=== PATIENT | female | born 1985 | race Caucasian/White ===

== ENCOUNTER 2017-12-08 07:47 | Emergency (ER) | payer MEDICAID, SELFPAY ==
[2017-12-08 07:49] VITALS: BP 124/75; PULSE 75; RESP 16; TEMP 36.6; O2SAT 98; BMI 29.9
--- NOTE | 2017-12-08 07:58 | ED.VISSUMM ---
- ER Visit Summary Date of Service: 12/08/17 Chief Complaint: Dental pain and left sided facial swelling History of Present Illness: The patient is a 32 F who presents because of severe pain that awoke her from sleep. She states she had minimal pain that started yesterday. She denies fever, chills night sweats. She states she is able to open her mouth and close her mouth completely. She denies change in voice. She denies a traumatic fever, murmur, SBE, IV drug use to be an immune suppressed. She denies any antibiotic allergies. She states she has to make an appointment at the [facility] for dental care. Physical Examination: Patient has swelling left side of the face. There is no erythema. There is no warmth or indurations. There is no fluctuance. There is no trismus. Pupils equal round reactive. Extra muscles are intact. Patient has a significant defect left upper second cuspid and left upper first molar. There is no fluctuance. Trach is midline. There is no stridor. Insert cardiopulmonary exam Test Results: None Emergency Department Course and Treatment: Patient drove to the ER she was treated with Naprosyn 500 mg and clindamycin 300 mg. Treatment Plan: Contact [facility] for dental care and prescription for Kenyon, Naprosyn and clindamycin Disposition: Discharged to home with dental follow-up Impression: 1. Dental pain secondary to carry left upper second bicuspid and first molar with exposure of pulp 2. Periodontal abscess This note was generated with [employer] dictation software. It may contain incorrect words, spelling, and punctuation that were not noted in review of the chart prior to signing ED Disposition - Plan for ED Patient: Disposition: Home or Assisted Living Chief Complaint: Dental Instructions: Dental Abscess, ED Cavity Dental Prescriptions: Hydrocodone Bitart/Apap 5-325 [Kenyon 5MG-325MG] 1 tablet PO Q6H PRN PRN 3 Days #10 tablet PRN Reason: Pain Naproxen [Naprosyn] 500 mg PO BID #14 tab Clindamycin HCl 300 mg PO 4X/DAY #30 cap Referrals: Care Physician,No Primary [Primary Care Provider] - Radha Baird [NON-STAFF] - 3-5 Days Additional Instructions: Your prescription was electronically sent to [facility] pharmacy located on [facility]
--- NOTE | 2017-12-08 08:07 | ED.DCSUM_ITS ---
- ER Visit Summary Date of Service: 12/08/17 Chief Complaint: Dental pain and left sided facial swelling History of Present Illness: The patient is a 32 F who presents because of severe pain that awoke her from sleep. She states she had minimal pain that started yesterday. She denies fever, chills night sweats. She states she is able to open her mouth and close her mouth completely. She denies change in voice. She denies a traumatic fever, murmur, SBE, IV drug use to be an immune suppressed. She denies any antibiotic allergies. She states she has to make an appointment at the [facility] for dental care. Physical Examination: Patient has swelling left side of the face. There is no erythema. There is no warmth or indurations. There is no fluctuance. There is no trismus. Pupils equal round reactive. Extra muscles are intact. Patient has a significant defect left upper second cuspid and left upper first molar. There is no fluctuance. Trach is midline. There is no stridor. Insert cardiopulmonary exam Test Results: None Emergency Department Course and Treatment: Patient drove to the ER she was treated with Naprosyn 500 mg and clindamycin 300 mg. Treatment Plan: Contact [facility] for dental care and prescription for Carney, Naprosyn and clindamycin Disposition: Discharged to home with dental follow-up Impression: 1. Dental pain secondary to carry left upper second bicuspid and first molar with exposure of pulp 2. Periodontal abscess This note was generated with [employer] dictation software. It may contain incorrect words, spelling, and punctuation that were not noted in review of the chart prior to signing ED Disposition - Plan for ED Patient: Disposition: Home or Assisted Living Chief Complaint: Dental Instructions: Dental Abscess, ED Cavity Dental Prescriptions: Hydrocodone Bitart/Apap 5-325 [Carney 5MG-325MG] 1 tablet PO Q6H PRN PRN 3 Days # 10 tablet PRN Reason: Pain Naproxen [Naprosyn] 500 mg PO BID #14 tab Clindamycin HCl 300 mg PO 4X/DAY #30 cap Referrals: Care Physician,No Primary [Primary Care Provider] - Radha Baird [NON-STAFF] - 3-5 Days Additional Instructions: Your prescription was electronically sent to [facility] pharmacy located on [facility]
[2017-12-08] MEDS: Naproxen 250 MG Tablet 500 MG PO (08:15)
[2017-12-08] MEDS: Clindamycin HCl 150 MG Capsule 300 MG PO (08:16)
[2017-12-08 08:18] VITALS: BP 129/78; PULSE 82; RESP 16; O2SAT 98
== END 2017-12-08 08:19 | disposition home or self-care (01) ==
PROVIDERS: Emergency Provider Emergency Medicine
DX: K02.9 Dental caries, unspecified (principal); K08.89 Other specified disorders of teeth and supporting structures; K04.7 Periapical abscess without sinus; E66.9 Obesity, unspecified; Z72.0 Tobacco use
CPT/HCPCS: 99283

== ENCOUNTER 2018-03-28 10:10 | Day surgery (SDC) | payer MEDICAID, SELFPAY ==
--- NOTE | 2018-03-28 | FALS_PTH ---
PATIENT: JEFE ALVAREZ LOC: [facility] U#:[id number] AGE/SX: 33/F ROOM: RE03/28/[address]: Dr. Leidy Gillis, MDDOB: 1985 BED: DIS: 03/28/2018 SPEC #: [id number] RECD: 03/29/18 13:15 STATUS: VALERY REApollo #: [id number] PAMELA: 03/28/18 00:[address]: Leidy Gillis DEPT: SURGICAL PATHOLOGY RECD BY: Sarbjit Garcia ENTERED: 03/29/18 13:16 SP TYPE: FALL TUBES OTHR DR: No Primary Care Phys Tissues: Fallopian tube Procedures: Surgery Specimen Level II HEADER OPERATION: Laparoscopic salpingectomy PRE-OP DIAGNOSIS: Sterilization request TISSUE SUBMITTED: Bilateral fallopian tubes MICROSCOPIC DIAGNOSIS Bilateral fallopian tubes: Bilateral fallopian tubes including fimbrial ends, no pathologic diagnosis. SJ:taniya 04/02/18 MICROSCOPIC DESCRIPTION Slides are reviewed. GROSS DESCRIPTION Received is one container labeled with the patient's name and designated bilateral fallopian tubes. The specimen consists of bilateral fallopian tubes including fimbrial ends. The fallopian tubes are not identified as right or left. One of the fallopian tubes measure 4.5 cm in length and 0.6 cm in diameter and the second fallopian tube measures 5.5 cm in length and 0.6 cm in diameter. Sections reveal unremarkable cut surfaces. Mechanics Supervisor sections are submitted in two cassettes with each cassette containing one fallopian tube. / TERRIE:taniya 03/29/18 TC:4 CPT: 79082 x2
[2018-03-28 10:30] LABS: Internal QC Validated? YES +Cl - CLEAR BKGD; Pregnancy, Urine Negative Negative
[2018-03-28 10:40] LABS: Hematocrit 42.7 % (37-47); Hemoglobin 14.9 g/dl (12.0-15.0); Mean Corp Hgb Conc 34.9 g/gl (32-36); Mean Corpuscular Hgb 29.4 pg (27.0-32.0); Mean Corpuscular Volume 84.2 fL (81-99); Mean Platelet Vol. 9.2 fl (6.2-12.0); Platelet Count 268 K/mm3 (150-450); RBC Distribution Width CV 12.4 % (11.6-14.6); RBC Distribution Width SD 37.4 fl (35.1-43.9); Red Blood Count 5.07 M/mm3 (4.2-5.4); White Blood Count 8.7 K/mm3 (4.4-11.0)
[2018-03-28 10:41] LABS: Scan Indicated on CBC? Y/N NO
[2018-03-28 10:43] VITALS: BP 107/65; PULSE 82; RESP 16; TEMP 36.8; O2SAT 98; BMI 29.5
--- NOTE | 2018-03-28 12:24 | PCM.DC.TUB ---
Discharge Diet: No Restrictions, - - Increase fluid intake for 48 hours. Discharge Activity: Return to Normal Activity, May Drive - when you are no longer taking narcotic pain medications., May Shower, May Take a Tub Bath - in 7 days., - - Ambulate often the next week after surgery. Lifting Restrictions: 20 Additional Activity Instructions:: Nothing in the vagina for the next 14 days. Call your doctor if your incision/area has: Continuous Slow Oozing, Sudden Increased Bleeding, Increased Pain/ Swelling, Increased Redness, Foul Smelling Discharge, Swelling at the incision site Call your doctor if you observe: Fever of 101 or Higher Cleanse incision/area with: - - you have skin glue over incision sites- may let soap and water run over them and dab dry. Do not pick off glue Allergies/Adverse Reactions: Allergies No Known Allergies Allergy (Verified 12/08/17 07:48) Medications to take at Discharge Albuterol Inhaler [Ventolin Hfa] 1 puff PO PRN PRN 12/08/17 Ibuprofen 600 mg PO 4X/DAY PRN PRN #30 tab 03/28/18 The following prescriptions were given: Ibuprofen 600 mg PO 4X/DAY PRN PRN #30 tab PRN Reason: Pain Primary Care Physician: Care Physician,No Primary [Primary Care Provider] - Please Follow Up With: Leidy Gillis MD When: as scheduled
[2018-03-28] MEDS: Ondansetron 4 MG/2 ML Vial (12:42)
[2018-03-28] MEDS: Bupivacaine Mpf 0.5% 30 ML VIAL (12:43)
--- NOTE | 2018-03-28 13:10 | OP.PCM_ITS ---
Operative Report Date of Procedure: 03/28/18 Surgeon: Dr. Leidy Gillis Indian Nanny: none Preoperative diagnosis: Sterilization request Procedure performed: Laparoscopic bilateral salpingectomy Postoperative diagnosis: sterilization request complications: None Estimated blood loss: 5 cc Drains: none Specimens collected: Bilateral tubes Findings: Normal tubes and ovaries bilaterally uterus sounded to approximately 8 cm. IV fluids: 800cc Anesthesia: General Operative note: After informed consent was obtained patient was taken to the operating room she was placed in supine position she was given anesthesia. She was then placed in the [facility] stirrups and she was prepped and draped in normal sterile fashion. Bladder was drained prior to the start of procedure approximately 5 cc of clear yellow urine was expelled. At this time attention was turned to the vaginal portion where weighted speculum placed at posterior fornix vagina single-tooth tenaculum was used to gently grasp the internal the cervix. uterus was gently sounded to approximately 8cm. Uterine manipulator was placed without difficulty. Legs then placed in parallel with the abdomen the tenaculum and the weighted speculum were removed. 2 towel clamps were placed superior to umbilicus. After Marcaine was injected superior to umbilicus a small incision was made and a 5 mm trocar was placed under direct visualization. CO2 gas was used to insufflate the intra-abdominal cavity. Upon inspection no gross abnormalities uterus tubes and ovaries appeared to be normal. At this time then the LLQ port was placed again Marcaine was injected small incision was made a knife and the 5 mm trocar was placed. Alligator clamp was then placed suprapubically. At this time then tubes were traced back to the fimbriated ends. Ligasure was used to coagulate and ligate along mesosalpinx bilaterally until tubes removed completely. Good hemostasis was appreciated. At this time procedure was deemed complete successful. The gas was desufflated on from the intra-abdominal cavity. The trocars were removed. Skin was closed using 4-0 Monocryl in a subcutaneous fashion. Dermabond glue was placed. Instrument lap and needle counts were correct ?2. The uterine manipulator was removed. Vaginal sweep was performed it was negative. There were no complications anticipated normal postoperative course for this patient.
[2018-03-28 13:20] VITALS: BP 107/65; BP 114/75; PULSE 75; RESP 16; TEMP 36.6; O2SAT 92
[2018-03-28 13:30] VITALS: BP 107/65; BP 111/53; PULSE 64; PULSE 71; RESP 16; O2SAT 93; O2SAT 94
[2018-03-28 13:45] VITALS: BP 101/70; BP 107/65; PULSE 67; RESP 16; O2SAT 97
[2018-03-28 13:58] VITALS: BP 107/65; BP 109/64; PULSE 67; RESP 16; TEMP 36.6; O2SAT 95
[2018-03-28 14:58] VITALS: BP 107/65
== END 2018-03-28 15:00 | disposition home or self-care (01) ==
LOC: SDC 10:11 → AC 10:12
PROVIDERS: Visit Provider Obstetrics & Gynecology
PROC: (CPT 58661; principal; 2018-03-28 11:50)
DX: Z30.2 Encounter for sterilization (principal); J45.909 Unspecified asthma, uncomplicated; F17.210 Nicotine dependence, cigarettes, uncomplicated
CPT/HCPCS: 58661; 36415; 81025; 85027; 88302; J7120; J2405

== ENCOUNTER 2019-04-17 07:42 | Emergency (ER) | payer SELFPAY ==
[2019-04-17 07:42] VITALS: BMI 29.9
[2019-04-17 07:43] VITALS: BP 111/87; PULSE 74; RESP 14; TEMP 36.5; O2SAT 97; BMI 27.4
--- NOTE | 2019-04-17 08:08 | ED.VISSUMM ---
- ER Visit Summary Date of Service: 04/17/19 Chief Complaint: Headache History of Present Illness: The patient is a 34 F who presents with dizziness and a headache that began yesterday. Patient describes her dizziness is a spinning sensation as well as feeling off balance. Patient states she felt like she was walking sideways yesterday. Patient states her headache is over the frontal area. Patient denies any nausea or vomiting. Patient states she has had a couple episodes of intermittent blurred vision with this. Patient denies any photophobia or scotoma. Patient denies any hearing changes but admits to some mild right ear pain. Patient admits to some nasal congestion and rhinorrhea over the last couple days as well. Patient states her dizziness is worse with movement of her head. Patient states she went to an urgent care and was told that they would not be able to see her there. Patient was told to see her primary care physician or go to the emergency department. Patient states she was unable to be seen by her primary care physician today she presented to the emergency department. Physical Examination: Vital signs are stable. Patient is afebrile. Patient is in no acute distress. Pupils are equal, round, and reactive to light bilaterally. Extraocular muscles are intact. There is mild nystagmus with right lateral gaze. Tympanic membranes are clear bilaterally. Oral mucosa is pink and moist. Oropharynx is clear. Neck is supple. Trachea is midline. There is no JVD noted. Heart was regular rate and rhythm. Lungs are clear and equal bilaterally. Cranial nerves II through XII are intact. There are no focal motor or sensory deficits noted. Test Results: CBC and basic metabolic profile were obtained and were normal. Serum hCG was obtained. Emergency Department Course and Treatment: Patient was given IV fluids, meclizine, and Toradol. Patient was feeling better on reevaluation. Patient states her dizziness has resolved. Patient states her headache improved. Patient was given a prescription for meclizine. Patient was instructed to follow-up with her primary care physician in 5 to 7 days. Patient was instructed to drink plenty of fluids. Patient understood and was agreeable with the plan. All questions were answered. Disposition: Discharge Home Impression: 1. Vertigo 2. Upper respiratory infection This note was generated with [employer] dictation software. It may contain incorrect words, spelling, and punctuation that were not noted in review of the chart prior to signing ED Disposition - Plan for ED Patient: Disposition: Home or Assisted Living Diagnosis: Vertigo, Viral upper respiratory infection Instructions: ED Vertigo Unspecified Prescriptions: Meclizine HCl 25 mg PO Q8H PRN PRN #20 tab PRN Reason: Dizziness Referrals: Care Physician,No Primary [Primary Care Provider] - 5-7 Days Additional Instructions: Drink plenty of fluids. Follow-up with your primary care physician in 5 to 7 days.
[2019-04-17] MEDS: 0.9% Normal Saline 1,000 ML 1000 ML IV (08:49)
[2019-04-17] MEDS: Meclizine HCl 25 MG Tablet PO (08:49)
[2019-04-17] MEDS: Ketorolac 30 MG/ML Syringe IV (08:50)
[2019-04-17 08:51] LABS: Absolute Lymphocyte Count 2.87 X10^3/ul (0.83-4.51); Absolute Neutrophil Count 3.3 X10^3/uL (2.0-7.7); Basophil# 0.02 X10^3/uL; Basophil% 0.3 % (0-1); Eosinophil# 0.57 X10^3/uL; Eosinophils% 8.1 % (0-5); Hematocrit 48.5 % (37-47); Lymphocyte # 2.87 X10^3/ul (4.0); Lymphocyte % 40.6 % (19-41); Mean Corp Hgb Conc 35.1 g/gl (32-36); Mean Corpuscular Hgb 29.7 pg (27.0-32.0); Mean Corpuscular Volume 84.8 fL (81-99); Monocyte# 0.31 X10^3/uL; Monocyte% 4.4 % (0-10); Neutrophil # 3.29 X10^3/uL (2.7-7.7); Neutrophil % 46.5 % (47-70); POSITIVE COUNT NO; POSITIVE DIFFERENTIAL NO; POSITIVE MORPHOLOGY NO; Platelet Count 237 K/mm3 (150-450); RBC Distribution Width SD 36.9 fl (35.1-43.9); Red Blood Count 5.72 M/mm3 (4.2-5.4); White Blood Count 7.1 K/mm3 (4.4-11.0)
[2019-04-17 09:03] LABS: Anion Gap 1 (5-15); BUN 10 mg/dL (7-18); BUN/Creat Ratio 12.3 RATIO (10-20); Calcium,Total 9.2 mg/dL (8.5-10.1); Chloride 110 mmol/L (98-107); Creatinine, Serum 0.81 mg/dL (0.55-1.02); EST Glomerular Filtration Rate 87 mL/min (>60); Est Glom Filt Rate - Afr Amer 105 mL/min (>60); Glucose 76 mg/dL (74-106); Potassium 4.2 mmol/L (3.5-5.1); Sodium Level 137 mmol/L (136-145)
[2019-04-17 09:30] LABS: Internal QC Validated? YES +Cl - CLEAR BKGD; Pregnancy, Serum, hCG Quali. NEGATIVE Negative
[2019-04-17 10:10] VITALS: BP 132/77; PULSE 62; RESP 17; O2SAT 98
== END 2019-04-17 10:11 | disposition home or self-care (01) ==
PROVIDERS: Emergency Provider Emergency Medicine
DX: J06.9 Acute upper respiratory infection, unspecified (principal); R42 Dizziness and giddiness; F17.200 Nicotine dependence, unspecified, uncomplicated
CPT/HCPCS: 80048; 84703; 85025; 96361; 96374; 99284; J7030; A4216

== ENCOUNTER 2020-01-21 21:18 | Emergency (ER) | payer SELFPAY ==
[2020-01-21 21:19] VITALS: BP 131/72; PULSE 71; RESP 16; TEMP 36.6; O2SAT 98; BMI 27.4
--- NOTE | 2020-01-21 21:50 | ED.DCSUM_ITS ---
- ER Visit Summary Date of Service: 01/21/20 Chief Complaint: Shortness of breath History of Present Illness: The patient is a 34 F who presents with shortness of breath that is been getting worse over the past 3 days. Patient states she feels like she cannot catch her breath. Patient states she is coughing up some clear sputum. Patient denies any fevers or chills. Patient denies any chest pain. Patient denies any sore throat, rhinorrhea, or ear pain. Patient states her mother and her have been diagnosed with bronchitis recently. Patient denies any recent travel or recent surgery. Patient denies any history of DVT or PE. Patient denies any history of cancer. Patient is PERC negative. Physical Examination: Vital signs are stable. Patient is afebrile. Patient is in no acute distress. Oral mucosa is pink and moist. Neck is supple. Trachea is midline. There is no JVD noted. Heart was regular rate and rhythm. Lungs are clear and equal bilaterally. Abdomen is soft. Bowel sounds are normal. There is no tenderness. There is no rebound or guarding noted. Skin is warm dry. Cranial nerves II through XII are intact. There are no focal motor or sensory deficits noted. Extremities are intact. There is no calf tenderness or edema. Test Results: PA and lateral chest x-ray was obtained. There is no acute cardiopulmonary process. This was interpreted by the radiologist and reviewed by myself. Influenza swab was obtained and was negative. Emergency Department Course and Treatment: Patient was feeling better on reevaluation. Patient states she is out of her albuterol inhaler. Patient was given a prescription for an albuterol inhaler. Patient was instructed to take [id number] medications as needed. Patient was instructed to drink plenty of fluids. Patient was instructed to follow-up with her primary care physician in 5 to 7 days. Patient was instructed to return if worse in any way. Patient understood and was agreeable with the plan. All questions were answered. Disposition: Discharge home Impression: Viral upper respiratory infection This note was generated with [employer] dictation software. It may contain incorrect words, spelling, and punctuation that were not noted in review of the chart prior to signing ED Disposition - Plan for ED Patient: Disposition: Home or Assisted Living Diagnosis: Viral upper respiratory tract infection with cough Instructions: URI, Viral, No Abx (Adult) Prescriptions: Albuterol Inhaler [Ventolin Hfa] 1 - 2 puff INHALATION Q4H PRN PRN #1 inhaler PRN Reason: Wheezing Prescription Printed Referrals: Care Physician,No Primary [Primary Care Provider] -
--- NOTE | 2020-01-21 22:15 | RAD_ITS ---
STUDY: X-RAY CHEST REASON FOR EXAM: Female, 34 years old. cough with sob TECHNIQUE: PA and lateral COMPARISON: August 22, 2017 FINDINGS: The lungs are clear and expanded. There is no demonstrated pleural abnormality. Normal size heart. Normal mediastinum and claudy. Normal visualized pulmonary arteries. Normal visualized aortic arch and descending thoracic aorta. Normal visualized thoracic spine. Normal visualized ribs, clavicles, and shoulders. There is no demonstrated abnormality of the visualized soft tissue structures of the upper abdomen. No change since prior study RAD/Chest PA and Lateral IMPRESSION: Normal x-ray examination of the chest. Electronically Signed: Vernon Robles MD at 22:28 EDT , Service support ,
== END 2020-01-21 22:48 | disposition home or self-care (01) ==
PROVIDERS: Emergency Provider Emergency Medicine
DX: J06.9 Acute upper respiratory infection, unspecified (principal); J45.909 Unspecified asthma, uncomplicated; F17.200 Nicotine dependence, unspecified, uncomplicated
CPT/HCPCS: 71046; 87804; 99283; A4216

== ENCOUNTER 2021-03-29 17:36 | Emergency (ER) | payer OTHER, SELFPAY ==
[2021-03-29 17:37] VITALS: BP 104/59; PULSE 93; RESP 18; TEMP 36.4; O2SAT 97; BMI 25.7
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
== END 2021-03-29 18:29 | disposition home or self-care (01) ==
PROVIDERS: Emergency Provider Emergency Medicine
DX: S29.012A Strain of muscle and tendon of back wall of thorax, initial encounter (principal); V89.2XXA Person injured in unspecified motor-vehicle accident, traffic, initial encounter; Y93.9 Activity, unspecified; Y92.9 Unspecified place or not applicable; J45.909 Unspecified asthma, uncomplicated; F17.210 Nicotine dependence, cigarettes, uncomplicated
CPT/HCPCS: 99282